=== PATIENT | male | born 2005 | race Caucasian/White ===

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

== ENCOUNTER 2025-09-22 09:19 | Outpatient (REF) | payer MEDICAID, SELFPAY ==
--- OUTSIDE RECORDS SUMMARY | 2025-09-22 10:15 | XMS_ITS | Clinical Summary ---
Author Organization [employer] Address [address] [place] [address] Care Team Providers Care Independent Crop Consultant Name Role Phone Unavailable Primary Care Provider Unavailabl e Allergies Active Allergy Reactions Criticality Noted Date Comments Penicillins 03/22/2025 Medications * This document contains information received from the source organization and may not represent a complete record from that organization. divalproex (Depakote ER) 250 MG 24 hr tablet Take 250 mg by mouth in the morning and 250 mg in the evening. Do not crush, chew, or split. Active hydrOXYzine HCl (Atarax) 50 MG tablet Take 50 mg by mouth every 8 (eight) hours if needed for anxiety. Active LORazepam (Ativan) 0.5 MG tablet Take 0.5 mg by mouth if needed in the morning and at bedtime for anxiety. Active citalopram (CeleXA) 20 MG tablet Take 20 mg by mouth Once per day. Active risperiDONE (RisperDAL) 1 MG tablet Take 1 mg by mouth at bedtime. Active Active Problems Problem Noted Date Diagnosed Date Severe episode of recurrent major depressive disorder, with psychotic features ([facility]) 09/14/2025 Assessment & Plan (09/14/2025 10:22 AM EST): - Condition currently stable on Risperdal and Depakote, unclear if he has a concomitant schizoaffective disorder? Schizophrenia? - Psychiatric follow-up scheduled for October 13, 2025 ([facility] at [facility]). - Continue current medications as prescribed, cut down or hold lorazepam PRN sedation. He feels safe at home - Advised consideration of psycho therapy to assist with crisis management and coping strategies, declined referral at this time. - Advised to seek help in case of worsening symptoms or crisis, crisis number given to him and mother. - Ordered baseline labs, declined STI testing. He's reluctant to get labs done. - follow-up visit in 6 weeks with labs - Declined Influenza IZ today. Mild tetrahydrocannabinol (THC) abuse 09/14/2025 Assessment & Plan (09/14/2025 10:03 AM EST): - Mild THC abuse previously, currently not using. Denies ongoing substance use. - Advised continued abstinence from THC and other substances. Provided education regarding the impact of substance use on mental health and brain chemistry. Offered support and resources for substance use counseling if needed. - FU w provider in 4w Anxiety 09/05/2023 Bilateral chronic knee pain 09/05/2023 Encounters Date Type Department Care Team Description 09/14/2025 9:15 AM EST Office Visit [address] [id number] Joelle Lopez MD Severe episode of recurrent major depressive disorder, with psychotic features (CMS/HCC) (HCC) (Primary Dx); Mild tetrahydrocannabinol (THC) abuse 09/14/2025 Patient Outreach [address] [phone] Joelle Lopez MD Care Coordination ([facility] outreach for SDOH housing search-referral completed ) 09/14/2025 Travel 09/14/[address] [phone] Joelle Lopez MD CHART PREP 09/07/2025 Patient Outreach [facility] [address] [place], [place] [phone] Joelle Lopez MD Pre-visit Planning (SDOH unable to reach LVM) 07/20/[address] [phone] Joelle Lopez MD No Show 07/19/[address] [phone] Joelle Lopez MD [employer] Appointment 07/19/[address] [phone] Joelle Lopez MD chart Prep 07/09/2025 Patient Outreach [facility] [address] [place] [address] Joelle Lopez MD Pre-visit Planning ((Unable to reach for PVP screening, LVM) to be completed in office ) from Last 3 Months Social History Tobacco Use Types Packs/Day Years Used Date Smoking Tobacco: Every Day Cigarettes Passive Smoke Exposure: Never Smokeless Tobacco: Never Tobacco Cessation:Ready to Q uit: Not Asked; Counseling Given: Not Answered Depression Answer Date Recorded Patient Health Questionnaire-9 Score 1 03/22/2025 Patient Health Questionnaire-9 Score 1 03/22/2025 Last PHQ-9: Questionnaire Data Not on file 0 03/22/2025 Housing Stability Answer Date Recorded What is your housing situation today? I have christie jesus 09/14/[address] you li ve. Do you have problems with any of the following? None of the above 09/14/2025 Food Insecurity Answer Date Recorded Within the past 12 months, y ou worried that your food would run out before you got money to buy more: Never True 2024 Within the past 12 months,th e food you bought just didn't last and you didn't have enough money to get more: Sometimes True 09/14/2025 Transportation Answer Date Recorded In the past 12 months, has l ack of transportation kept you from medical appts, meetings, work or from getting things needed for daily living? No 09/14/2025 Utilities Answer Date Recorded In the past 12 months, has t he electric, gas, oil or water company threatened to shut off services in your home? No 09/14/2025 Depression Answer Date Recorded Patient Health Questionnaire-2 Score 0 03/22/2025 Internet Access Answer Date Recorded Internet Access Q1 Yes 09/14/2025 Internet Access Q2 Not on file 09/14/2025 Sex and Gender Information Value Date Recorded Sex Assigned at Male 09/05/2023 12:56 PM EDT Legal Sex Male 12:46 PM EDT Gender Identity Male 09/05/2023 12:56 PM EDT Sexual Orientation Straight 09/05/2023 12 :56 PM EDT Last Filed Vital Signs Vital Sign Reading Time Taken Comments Blood Pressure 122/70 09/14/2025 9:06 AM EST Pulse 92 09/14/2025 9:06 AM EST Temperature 37.6 C (99.6 F) 09/14/2025 9:06 AM EST Respiratory Rate 18 09/14/2025 9:06 AM EST Oxygen Saturation 100% 03/22/2025 9:59 AM EDT Inhaled Oxygen Concentration - - Weight 59.1 kg (130 lb 6.4 oz) 09/14/2025 9:06 A M EST Height 168.9 cm (5' 6.5 ) 09/14/2025 9:06 AM EST Body Mass Index 20.73 09/14/2025 9:06 AM EST Plan of Treatment Upcoming Encounters Date Type Department Care Team (Late st Contact Info) Description 11/19/2025 11:30 AM EST Office Visit [facility] [address] [place], [place] [phone] Joelle Lopez MD [address], [place] [phone] Health Maintenance Due Date Last Done Comments Chlamydia and Gonorrhea Screening 2004 HIV Screening 2004 Lipid Panel 2004 Family Planning (PISQ) 2019 HPV Vaccines (1 - Male 3-dos e series) 2019 Meningococcal B Vaccine (1 o f 2 - Standard) 2020 Hepatitis C Screening 2022 DTaP/Tdap/Td Vaccines (1 - Tdap) 2023 Hepatitis B Vaccines (1 of 3 - 19+ 3-dose series) 2023 Pneumococcal Vaccine: Pediatrics (0 to 5 Years) and At-Risk Patients (6 to 49) Years (1 of 2 - PCV) 2023 COVID-19 Vaccine (1 - 2023-2 5 season) 2025 Influenza Vaccine (#1) 2025 Depression Screening 03/22/2026 03/22/2025, 03/22/2025 Alcohol/Substance Use Screening 09/14/2026 09/14/2025 Disability Screening 09/14/2026 09/14/2025 SDOH Screening 09/14/2026 09/14/2025 Tobacco Screening 09/14/2026 09/14/2025 Zoster Vaccines (1 of 2) 2054 RSV Patients and Patients Aged 60 years or older (1 - 1-dose 75+ series) 2079 HIB Vaccines Aged Out No longer eligi ble based on patient's age to complete this topic Hepatitis A Vaccines Aged Out No long er eligible based on patient's age to complete this topic IPV Vaccines Aged Out No longer eligi ble based on patient's age to complete this topic Meningococcal Vaccine Aged Out No jose carmel eligible based on patient's age to complete this topic RSV under 20 months Aged Out No longe r eligible based on patient's age to complete this topic Rotavirus Vaccines Aged Out No longer eligible based on patient's age to complete this topic [facility]
[2025-09-22 11:59] LABS: MANUAL DIFF FLAG NO
[2025-09-22 12:13] LABS: Hematocrit 46.9 % (42.0-52.0); Hemoglobin 15.2 g/dl (14.0-18.0); Imm Gran Abs Auto 0.03 X10*3/uL (0.00-0.03); Imm Gran Pct Auto 0.4 % (0.0-0.4); Lymphocytes Absolute Auto 2.0 X10*3/uL (1.2-4.9); Mean Corpuscular HGB Conc 32.4 g/dl (31.0-36.0); Mean Corpuscular Hemoglobin 27.1 pg (27.0-33.0); Mean Corpuscular Volume 83.8 fL (80.0-98.0); NRBC Abs Auto 0.000 X10*3/uL (0.0-0.012); NRBC Pct Auto 0.0 /100WBC (0.0-0.2); Platelet Count 230 X10*3/uL (160-400); Red Blood Count 5.60 X10*6/uL (4.60-5.80); White Blood Count 6.7 X10*3/uL (4.8-10.8)
[2025-09-22 13:01] LABS: Alanine Aminotransferase 20 U/L (0-40); Albumin Level 5.1 g/dL (3.5-5.0); Alkaline Phosphatase 71 U/L (39-117); Anion Gap 11 (12-20); Aspartate Amino Transferase 26 U/L (5-37); Blood Urea Nitrogen 9 mg/dL (9-16); Calcium 9.8 mg/dL (8.4-10.2); Carbon Dioxide 28 mmol/L (22-29); Chloride 106 mmol/L (96-108); Cholesterol 141 mg/dL (<200); Estimated Glomerular Filt Rate > 60; HDL Cholesterol 43 mg/dL (>40); Potassium 4.0 mmol/L (3.3-5.1); Sodium 141 mmol/L (135-145); Total Protein 7.7 g/dL (6.5-8.0); Triglycerides 99 mg/dL (<150)
[2025-09-22 13:03] LABS: HBS Num1 1.86 mIU/mL (0-7.99); HBc Num1 0.09 S/CO (0.00-0.79); HBsAGNum1 0.47 S/CO (0.00-0.99); Hepatitis A Antibody IgM 0.16 Index (0-0.79); Hepatitis B Surface Antigen Negative (Negative); ~HepC Num1 0.07 S/CO (0.00-0.79); ~Hepatitis A Antibody IgM Nonreactive (Nonreactive); ~Hepatitis B Surface Antibody NONREACTIVE (Nonreactive); ~Hepatitis C Antibody Nonreactive (Nonreactive)
[2025-09-22 13:31] LABS: Free T4 (Free Thyroxine) 1.13 ng/dL (0.71-1.85)
[2025-09-25 18:02] LABS: TS Negative Control Passed; TS Panel A 0; TS Panel B 0; TS Positive Control Passed; TSpotTB Negative (Negative)
== END 2025-09-22 09:20 | disposition home or self-care (01) ==
LOC: HO.HHCL 09:19
PROVIDERS: PCP Internal Medicine; Visit Provider Internal Medicine
DX: Z11.1 Encounter for screening for respiratory tuberculosis (principal); Z11.59 Encounter for screening for other viral diseases; F33.3 Major depressive disorder, recurrent, severe with psychotic symptoms; F12.10 Cannabis abuse, uncomplicated
CPT/HCPCS: 36415; 80053; 80061; 84439; 84443; 85025; 86481; 86704; 86706; 86709; 86803; 87340